=== PATIENT | female | born 1990 | race Two or more races ===

== ENCOUNTER → 2025-02-27 | Emergency (ER) | payer OTHER ==
[~2025-02-27] VITALS: Ht 162.6 cm; Wt 115.2 kg
[~2025-02-27] MED LIST: CEFTRIAXONE SODIUM 1,000 MG VIAL IM STA; CEFTRIAXONE SODIUM 1,000 MG VIAL ONE; GUAIFENESIN 200 MG/10 ML BLIST.PACK PO ONE; GUAIFENESIN 200 MG/10 ML BLIST.PACK PO STA; METHYLPREDNISOLONE SOD SUCC 125 MG VIAL IM STA; METHYLPREDNISOLONE SOD SUCC 125 MG VIAL ONE
[2025-02-27 13:11] LABS: BASO % 0.6 % (0.1-1.2); EOS # 0.11 (0.04-0.54); EOS % 1.3 % (0.7-7.0); LYMPH # 3.13 (1.18-3.74); LYMPH % 37.6 % (19.3-53.1); MEAN PLATELET VOLUME 10.10 fl (9.4-12.4); MONO # 0.48 (0.24-0.82); MONO % 5.8 % (4.7-12.5); NEUT # 4.48 (1.56-6.13); NEUT % 53.7 % (34.0-71.1); RED CELL DISTRIBUTION WIDTH 15.2 % (11.6-14.4)
[2025-02-27 15:34] LABS: COVID-19 AG NEGATIVE (NEGATIVE)
== END | disposition home or self-care (01) ==
LOC: ER 11:12
PROVIDERS: General Practice
DX: R06.9 Unspecified abnormalities of breathing (principal); R05.8 Other specified cough; Z20.822 Contact with and (suspected) exposure to COVID-19